=== PATIENT | female | born 1945 | race African-American/Black ===

== ENCOUNTER 2017-02-17 17:40 | Emergency (ER) | payer MEDICARE ==
[~2017-02-17] VITALS: Ht 165.1 cm; Wt 112.9 kg
[~2017-02-17 17:40] MED LIST: AMLO10TA4 PO; LISI40TA PO; NAPR500T PO
--- NOTE | 2017-02-17 17:58 | EKG ---
[facility] [address] [place] [address] Test Date: 2017-02-17 Test Time: 17:46:57 Pat Name: ANGELICA KUMAR Department: Room: Gender: F Research And Development Manager: : 1945 Requested By: KIERAN SÁNCHEZ Order Number: [id number] Reading MD: Kristina Grant Measurements Intervals [place] Rate: 71 P: 59 WV: 212 QRS: -18 QRSD: 92 T: 50 QT: 354 QTc: 389 Interpretive Statements SINUS RHYTHM LEFTWARD AXIS OTHERWISE NORMAL ECG RI6.01 Compared to ECG 03/25/2016 12:16:02 First degree AV block no longer present Electronically Signed On 02-18-2017 19:58:34 CDT by Kristina Grant
[2017-02-17 18:12] LABS: BASO # 0.1 x10^3/uL (0.0-0.2); BASO % 1 % (0-3); EOS % 1 % (0-3); HEMATOCRIT 37.9 % (36.0-47.0); HEMOGLOBIN 12.2 g/dL (12.0-15.5); LYMPH # 0.9 x10^3/uL (1.0-4.8); LYMPH % 11 % (24-48); MEAN CORPUSCULAR HEMOGLOBIN 26 pg (25-35); MEAN CORPUSCULAR HGB CONC 32 g/dL (31-37); MEAN CORPUSCULAR VOLUME 82 fL (79-100); MONO % 8 % (0-9); NEUT % 80 % (31-73); PLATELET COUNT 229 x10^3/uL (140-400); RED BLOOD COUNT 4.63 x10^6/uL (3.50-5.40); RED CELL DISTRIBUTION WIDTH 15.6 % (11.5-14.5)
[2017-02-17 18:20] VITALS: BP 131/78
[2017-02-17 18:23] LABS: CREATININE 1.4 mg/dL (0.6-1.0); POTASSIUM 4.8 mmol/L (3.5-5.1)
--- NOTE | 2017-02-17 20:54 | PHYS DOC ---
Past Medical History Past Medical History: Hypertension Additional Past Medical Histor: gout Past Surgical History: Hysterectomy Alcohol Use: None Drug Use: None Adult General Chief Complaint Chief Complaint: [facility]ST [facility] HPI 72-year-old female who presents with intermittent left upper chest wall pain that was noted earlier today that is now completely resolved. Upon my initial assessment, the patient is having no chest pain whatsoever. She denies any history of cardiac disease. She states she has history of hypertension. She denies any shortness of breath. Patient is in no acute distress upon my initial evaluation and is chest pain-free. She states she was concerned because her blood pressure was slightly elevated earlier today with her symptoms. Her blood pressure upon my initial assessment is in the 140s over 80s. Review of Systems Review of Systems Constitutional: Denies fever or chills [] Eyes: Denies change in visual acuity, redness, or eye pain [] HENT: Denies nasal congestion or sore throat [] Respiratory: Denies cough or shortness of breath [] Cardiovascular: No additional information not addressed in HPI [] GI: Denies abdominal pain, nausea, vomiting, bloody stools or diarrhea [] : Denies dysuria or hematuria [] Musculoskeletal: Denies back pain or joint pain [] Integument: Denies rash or skin lesions [] Neurologic: Denies headache, focal weakness or sensory changes [] Endocrine: Denies polyuria or polydipsia [] Allergies Allergies Allergies Coded Allergies Type Severity Reaction Last Updated Verified atorvastatin Allergy Severe 03/25/16 Yes simvastatin Allergy Severe 03/25/16 No Physical Exam Physical Exam Constitutional: Well developed, well nourished, no acute distress, non-toxic appearance. [] HENT: Normocephalic, atraumatic, bilateral external ears normal, oropharynx moist, no oral exudates, nose normal. [] Eyes: PERRLA, EOMI, conjunctiva normal, no discharge. [] Neck: Normal range of motion, no tenderness, supple, no stridor. [] Cardiovascular:Heart rate regular rhythm, no murmur [] Lungs & Thorax: Bilateral breath sounds clear to auscultation [] Abdomen: Bowel sounds normal, soft, no tenderness, no masses, no pulsatile masses. [] Skin: Warm, dry, no erythema, no rash. [] Back: No tenderness, no CVA tenderness. [] Extremities: No tenderness, no cyanosis, no clubbing, ROM intact, no edema. [] Neurologic: Alert and oriented X 3, normal motor function, normal sensory function, no focal deficits noted. [] Psychologic: Affect normal, judgement normal, mood normal. [] Current Patient Data Vital Signs Vital Signs Date Time Temp Pulse Resp B/P Pulse Ox O2 Delivery O2 Flow Rate FiO2 02/17/17 18:20 82 20 131/78 96 02/17/17 17:57 98.8 Room Air 98.8 Lab Values Laboratory Tests Test 02/17/17 18:00 02/17/17 20:00 White Blood Count 9.0x10^3/uL (4.0-11.0) Red Blood Count 4.63x10^6/uL (3.50-5.40) Hemoglobin 12.2g/dL (12.0-15.5) Hematocrit 37.9% (36.0-47.0) Mean Corpuscular Volume 82fL (79-100) Mean Corpuscular Hemoglobin 26pg (25-35) Mean Corpuscular Hemoglobin Concent 32g/dL (31-37) Red Cell Distribution Width 15.6% (11.5-14.5) H Platelet Count 229x10^3/uL (140-400) Neutrophils (%) (Auto) 80% (31-73) H Lymphocytes (%) (Auto) 11% (24-48) L Monocytes (%) (Auto) 8% (0-9) Eosinophils (%) (Auto) 1% (0-3) Basophils (%) (Auto) 1% (0-3) Neutrophils # (Auto) 7.1x10^3uL (1.8-7.7) Lymphocytes # (Auto) 0.9x10^3/uL (1.0-4.8) L Monocytes # (Auto) 0.7x10^3/uL (0.0-1.1) Eosinophils # (Auto) 0.1x10^3/uL (0.0-0.7) Basophils # (Auto) 0.1x10^3/uL (0.0-0.2) Sodium Level 139mmol/L (136-145) Potassium Level 4.8mmol/L (3.5-5.1) Chloride Level 103mmol/L (98-107) Carbon Dioxide Level 28mmol/L (21-32) Anion Gap 8 (6-14) Blood Urea Nitrogen 35mg/dL (7-20) H Creatinine 1.4mg/dL (0.6-1.0) H Estimated GFR (Cockcroft-Gault) 45.0 Glucose Level 106mg/dL (70-99) H Calcium Level 10.0mg/dL (8.5-10.1) Troponin I Quantitative < 0.017ng/mL (0.000-0.055) < 0.017ng/mL (0.000-0.055) Laboratory Tests 02/17/17 18:00 Laboratory Tests 02/17/17 18:00 EKG EKG EKG as interpreted by me shows a sinus rhythm with a rate of 71 bpm. There is a leftward axis. There are no obvious ischemic findings. Radiology/Procedures Radiology/Procedures One view of the chest as interpreted by me did not reveal an acute cardiopulmonary process. Course & Med Decision Making Course & Med Decision Making Pertinent Labs and Imaging studies reviewed. (See chart for details) 72-year-old female who presented with an episode of mild left upper chest pain that fully resolved had blood work that was unrevealing. 2 sets of cardiac enzymes were negative. Her EKG and chest x-ray were unremarkable. A counselor at length she is to follow closely with her primary care doctor in next 1-2 days and to return to the ER if her chest pain should return, I deemed her to be relatively low risk for cardiac related chest pain by the fact that she only has history of hypertension and her age. Dragon Disclaimer Dragon Disclaimer This electronic medical record was generated, in whole or in part, using a voice recognition dictation system. Departure Departure Impression: Primary Impression: Chest pain Disposition: 01 HOME, SELF-CARE Admitting Physician: Other Condition: STABLE Referrals: CARLOTTA ESTEBAN MD (PCP) Patient Instructions: Chest Pain (Nonspecific), [id number] Additional Instructions: Please follow up with your primary doctor in the next 1-2 days for your chest pain. Return to the ER if you develop any worsening of your symptoms or if your chest pain should worsen. KIERAN SÁNCHEZ DO Feb 17, 2017 20:54
--- NOTE | 2017-02-18 07:53 | RAD ---
Indication chest pain. A single view of the chest was obtained and is compared to a study 05/22/2014. Heart size is at the upper limits of normal. There is no congestive heart failure or focal infiltrate seen. Significant pleural fluid is not present and there is no pneumothorax. IMPRESSION: No acute finding apparent in the chest
== END 2017-02-17 21:06 | disposition home or self-care (01) ==
LOC: ER 17:40
DX: R07.89 Other chest pain (principal); I10 Essential (primary) hypertension; M10.9 Gout, unspecified; Z90.710 Acquired absence of both cervix and uterus; Z88.8 Allergy status to other drugs, medicaments and biological substances
CPT/HCPCS: 36415; 71010; 80048; 84484; 85027; 93005; 99285-25

== ENCOUNTER 2017-10-02 15:44 | Emergency (ER) | payer MEDICARE ==
[~2017-10-02] VITALS: Ht 160 cm; Wt 108.9 kg
[2017-10-02] MEDS ORDERED: HYDROcodone/APAP 5/325MG 1 TAB TABLET PO ONE (16:15)
[2017-10-02 16:39] LABS: BASO # 0.1 x10^3/uL (0.0-0.2); BASO % 1 % (0-3); EOS % 2 % (0-3); HEMOGLOBIN 12.4 g/dL (12.0-15.5); LYMPH % 11 % (24-48); MEAN CORPUSCULAR HEMOGLOBIN 27 pg (25-35); MEAN CORPUSCULAR HGB CONC 33 g/dL (31-37); MEAN CORPUSCULAR VOLUME 81 fL (79-100); MONO % 8 % (0-9); NEUT % 79 % (31-73); PLATELET COUNT 286 x10^3/uL (140-400); RED BLOOD COUNT 4.66 x10^6/uL (3.50-5.40); RED CELL DISTRIBUTION WIDTH 14.6 % (11.5-14.5); WHITE BLOOD COUNT 8.7 x10^3/uL (4.0-11.0)
[2017-10-02 16:51] LABS: CALCIUM 10.9 mg/dL (8.5-10.1); CREATININE 1.9 mg/dL (0.6-1.0); GFR 31.6; POTASSIUM 4.7 mmol/L (3.5-5.1)
[2017-10-02 16:57] LABS: ALBUMIN 3.7 g/dL (3.4-5.0); ALBUMIN/GLOBULIN RATIO 0.7 (1.0-1.7); TOTAL BILIRUBIN 0.4 mg/dL (0.2-1.0); TOTAL PROTEIN 8.7 g/dL (6.4-8.2)
[2017-10-02 16:59] LABS: BILIRUBIN,URINE NEGATIVE (NEG); GLUCOSE,URINE NEGATIVE (NEG); NITRITE,URINE NEGATIVE (NEG); PROTEIN,URINE NEGATIVE (NEG-TRACE)
[2017-10-02 17:15] VITALS: BP 138/78
--- NOTE | 2017-10-02 17:16 | RAD ---
EXAM: Left lower extremity venous Doppler. HISTORY: Left calf pain/swelling. COMPARISON: None. FINDINGS: Grayscale and Doppler analysis of the left lower extremity deep venous system was performed with graded compression and augmentation. The common femoral, greater saphenous, superficial femoral, popliteal and calf veins were assessed. There is no evidence of deep venous thrombosis. IMPRESSION: 1. No evidence of deep venous thrombosis.
[2017-10-02 17:20] LABS: RBC,URINE 0 /HPF (0-2); WBC,URINE OCC /HPF (0-4)
[2017-10-02 17:21] LABS: BACTERIA,URINE MODERATE /HPF (0-FEW); SQUAMOUS EPITHELIAL CELL,UR OCC /LPF; YEAST,URINE PRESENT /HPF
[2017-10-02] MEDS ORDERED: HYDR-971 PO (18:01)
--- NOTE | 2017-10-02 18:01 | PHYS DOC ---
Past Medical History Past Medical History: Hypertension Additional Past Medical Histor: GOUT Past Surgical History: Hysterectomy Alcohol Use: None Drug Use: None Adult General Chief Complaint Chief Complaint: LOWER BACK PAIN OR INJURY HPI HPI Patient is a 72 year old female who presents with bilateral foot pain & swelling. The patient states she has been diagnosed with gout in bilateral feet , was taking colchicine without relief, called her doctor & received prescription for indomethacin but reports continued pain with ambulation & swelling extending into her calves, which is greater on the left. Denies trauma. She denies fevers/chills, erythema/warmth/swelling, chest pain, shortness of breath, vomiting. She has history of previous episodes of gout responding to colchicine. No recent travel or immobilization. She also has knee osteoarthritis & follows with Dr. Jarrett in the orthopedic clinic. Additionally she reports chronic lower back pain which is present tonight. Denies any new back injuries. Denies fevers/chills, abdominal pain, saddle anesthesia, lower extremity numbness/weakness, bowel/bladder incontinence or retention, dysuria/hematuria. PCP is Dr. Esteban. Review of Systems Review of Systems Constitutional: Denies fever or chills HENT: Denies nasal congestion or sore throat Respiratory: Denies cough or shortness of breath Cardiovascular: Denies chest pain, reports edema GI: Denies abdominal pain, nausea, vomiting Musculoskeletal: Reports back pain & foot pain Integument: Denies rash or skin lesions Neurologic: Denies headache, focal weakness or sensory changes All other systems were reviewed and found to be within normal limits, except as documented in this note. Current Medications Current Medications Current Medications Medications (Trade) Dose Ordered Sig/[facility] Start Time Stop Time Status Last Admin Dose Admin Acetaminophen/ Hydrocodone Bitart (Lortab 5/325) 1 tab 1X ONCE 10/02/17 16:15 10/02/17 16:16 DC 10/02/17 16:18 1 TAB Allergies Allergies Allergies Coded Allergies Type Severity Reaction Last Updated Verified atorvastatin Allergy Severe 03/25/16 Yes simvastatin Allergy Severe 03/25/16 No Physical Exam Physical Exam Constitutional: obese, no acute distress, non-toxic appearance. HENT: Normocephalic, atraumatic, bilateral external ears normal, oropharynx moist, nose normal. Eyes: conjunctiva normal, no discharge. Neck: supple, no stridor. Cardiovascular: RRR, no murmurs, no edema. Lungs & Thorax: LCTAB, no wheezing, no respiratory distress. Abdomen: soft, nontender, nondistended. no masses or pulsatile masses. Skin: Warm, dry, no erythema, no rash. Back: No CVA tenderness, mild diffuse pain across lower back without focal spinal tenderness or step offs Extremities: bilateral 2+ nonpitting edema to lower extremities, slight calf tenderness on the left, no obvious joint erythema/warmth/swelling to her bilateral feet, dp/pt 2+ bilaterally, symmetric strength & sensation to lower extremities. Neurologic: Alert and oriented X 3, no focal deficits noted. Psychologic: Affect normal, judgement normal, mood normal. Current Patient Data Vital Signs Vital Signs Date Time Temp Pulse Resp B/P (MAP) Pulse Ox O2 Delivery O2 Flow Rate FiO2 10/02/17 17:15 72 16 138/78 (98) 100 Room Air 10/02/17 15:52 98.0 98.0 Lab Values Laboratory Tests Test 10/02/17 16:25 10/02/17 16:45 White Blood Count 8.7 x10^3/uL (4.0-11.0) Red Blood Count 4.66 x10^6/uL (3.50-5.40) Hemoglobin 12.4 g/dL (12.0-15.5) Hematocrit 38.0 % (36.0-47.0) Mean Corpuscular Volume 81 fL (79-100) Mean Corpuscular Hemoglobin 27 pg (25-35) Mean Corpuscular Hemoglobin Concent 33 g/dL (31-37) Red Cell Distribution Width 14.6 % (11.5-14.5) H Platelet Count 286 x10^3/uL (140-400) Neutrophils (%) (Auto) 79 % (31-73) H Lymphocytes (%) (Auto) 11 % (24-48) L Monocytes (%) (Auto) 8 % (0-9) Eosinophils (%) (Auto) 2 % (0-3) Basophils (%) (Auto) 1 % (0-3) Neutrophils # (Auto) 6.8 x10^3uL (1.8-7.7) Lymphocytes # (Auto) 1.0 x10^3/uL (1.0-4.8) Monocytes # (Auto) 0.7 x10^3/uL (0.0-1.1) Eosinophils # (Auto) 0.1 x10^3/uL (0.0-0.7) Basophils # (Auto) 0.1 x10^3/uL (0.0-0.2) Sodium Level 140 mmol/L (136-145) Potassium Level 4.7 mmol/L (3.5-5.1) Chloride Level 102 mmol/L (98-107) Carbon Dioxide Level 27 mmol/L (21-32) Anion Gap 11 (6-14) Blood Urea Nitrogen 45 mg/dL (7-20) H Creatinine 1.9 mg/dL (0.6-1.0) H Estimated GFR (Cockcroft-Gault) 31.6 BUN/Creatinine Ratio 24 (6-20) H Glucose Level 99 mg/dL (70-99) Calcium Level 10.9 mg/dL (8.5-10.1) H Total Bilirubin 0.4 mg/dL (0.2-1.0) Aspartate Amino Transferase (AST) 14 U/L (15-37) L Alanine Aminotransferase (ALT) 15 U/L (14-59) Alkaline Phosphatase 116 U/L (46-116) KA-Oov-S-Type Natriuretic Peptide 368 pg/mL (0-124) H Total Protein 8.7 g/dL (6.4-8.2) H Albumin 3.7 g/dL (3.4-5.0) Albumin/Globulin Ratio 0.7 (1.0-1.7) L Urine Color Yellow Urine Clarity Clear Urine pH 6.0 Urine Specific [place] 1.015 Urine Protein Negative mg/dL (NEG-TRACE) Urine Glucose (UA) Negative mg/dL (NEG) Urine Ketones (Stick) Negative mg/dL (NEG) Urine Blood Negative (NEG) Urine Nitrite Negative (NEG) Urine Bilirubin Negative (NEG) Urine Urobilinogen Dipstick 1.0 mg/dL (0.2 mg/dL) Urine Leukocyte Esterase Negative (NEG) Urine RBC 0 /HPF (0-2) Urine WBC Occ /HPF (0-4) Urine Squamous Epithelial Cells Occ /LPF Urine Bacteria Moderate /HPF (0-FEW) Urine Hyaline Casts Occasional /HPF Urine Mucus Mod /LPF Urine Yeast Present /HPF Laboratory Tests 10/02/17 16:25 Laboratory Tests 10/02/17 16:25 EKG EKG [] Radiology/Procedures Radiology/Procedures PROCEDURE: VENOUS LOWER EXTREMITY LEFT EXAM: Left lower extremity venous Doppler. HISTORY: Left calf pain/swelling. COMPARISON: None. FINDINGS: Grayscale and Doppler analysis of the left lower extremity deep venous system was performed with graded compression and augmentation. The common femoral, greater saphenous, superficial femoral, popliteal and calf veins were assessed. There is no evidence of deep venous thrombosis. IMPRESSION: 1. No evidence of deep venous thrombosis. DICTATED and SIGNED BY: NERIS BERRY MD DATE: 10/02/171710 [] Course & Med Decision Making Course & Med Decision Making Pertinent Labs and Imaging studies reviewed. (See chart for details) The patient presents with back pain & foot/calf pain. At this time I do not see any evidence of acute gout, so the medication may have helped more than she realized. This appears to be mostly chronic back pain with chronic peripheral edema/venous insufficiency, but obtained venous ultrasound of the painful calf as well as labs. BNP slightly elevated, creatinine elevated, review of previous labs demonstrates that this is at her baseline. Recommend supportive care - rest, elevation, compression stockings, follow up with PCP next week if not improving. Come back for high fever, severe chest pain or shortness of breath, focal neuro deficit, symptoms of cauda equina syndrome, any otherwise worsening condition. Discharged home in stable condition. [] Dragon Disclaimer Dragon Disclaimer This electronic medical record was generated, in whole or in part, using a voice recognition dictation system. Departure Departure Impression: Primary Impression: Lower extremity edema Disposition: 01 HOME, SELF-CARE Condition: STABLE Referrals: CARLOTTA ESTEBAN MD (PCP) Patient Instructions: Edema, [id number] Additional Instructions: You were seen in the emergency department today for leg swelling. Your tests here did not show serious cause of symptoms. Please elevate your legs, wear compression stockings, take all medications as prescribed by your doctor. Use norco as needed for severe pain. No drinking alcohol or driving while taking this medication. Follow up with Dr. Esteban in 2-3 days if not improving. Come back for severe shortness of breath or chest pain, or any otherwise worsening condition. Scripts Hydrocodone/Apap 5-325 (NORCO 5-325 TABLET) 1 Each Tablet 1 TAB PO PRN Q6HRS Y for PAIN, #10 TAB 0 Refills Prov: LATRICE HOOKER MD 10/02/17 LATRICE HOOKER MD Oct 02, 2017 18:01
--- NOTE | 2017-10-05 16:30 | VNOTE ---
CALL BACK NOTE CALL BACK Microbiology 10/02/17 Urine Culture - Final, Complete 10/02/17 Urine Culture Result 1 (BALTA) - Final, Complete 10/02/17 Antimicrobic Susceptibility - Final, Complete Voicemail left at patient's contact information provided to return phone call to discuss culture results. Augmentin 875 mg tablets, take 1 tablet twice a day 10 days. Dispense 20 tablets. no refills. ELANA CABRERA Oct 05, 2017 16:30
--- NOTE | 2017-10-05 16:44 | VNOTE ---
CALL BACK NOTE CALL BACK Microbiology 10/02/17 Urine Culture - Final, Complete 10/02/17 Urine Culture Result 1 (BALTA) - Final, Complete 10/02/17 Antimicrobic Susceptibility - Final, Complete Patient called back and [facility] [phone] ELANA CABRERA Oct 05, 2017 16:44
== END 2017-10-02 18:18 | disposition home or self-care (01) ==
LOC: ER 15:44
DX: R60.0 Localized edema (principal); G89.29 Other chronic pain; M54.5 Low back pain; I10 Essential (primary) hypertension; E66.9 Obesity, unspecified; M10.9 Gout, unspecified; Z68.41 Body mass index [BMI] 40.0-44.9, adult; Z79.899 Other long term (current) drug therapy; Z88.8 Allergy status to other drugs, medicaments and biological substances
CPT/HCPCS: 36415; 80053; 81001; 83880; 85025; 87086; 87186; 93971; 99285-25

== ENCOUNTER → 2018-04-23 | Outpatient (CLI) | payer MEDICARE ==
[2018-04-23] MEDS: IOHEXOL 300 MG/ML 50 ML VIAL. INT ART (11:23)
[2018-04-23] MEDS: BUPIVACAINE MPF 0.25% 10 ML VIAL. INT ART (11:23)
[2018-04-23] MEDS: methylPREDNISolone ACETATE 40 MG/ML VIAL. INT ART (11:23)
[2018-04-23] MEDS: LIDOCAINE 1% Multi-Dose 20 ML VIAL. ID (11:23)
== END | disposition home or self-care (01) ==
LOC: KCIC 10:22
DX: M25.551 Pain in right hip (principal); G89.29 Other chronic pain; I10 Essential (primary) hypertension; E78.00 Pure hypercholesterolemia, unspecified; M10.9 Gout, unspecified; Z88.8 Allergy status to other drugs, medicaments and biological substances
CPT/HCPCS: 20610; 77002; J1030; J3490; Q9967

== ENCOUNTER → 2018-11-12 | Outpatient (CLI) | payer MEDICARE ==
[~2018-11-12] MED LIST changes: +HYDR-3164 PO; +LISI-130 PO; -LISI40TA PO; +NAPR-683 PO; -NAPR500T PO
--- NOTE | 2018-11-12 14:58 | KCIC ---
EXAM: Bilateral screening mammogram. HISTORY: 73-year-old female presents for screening mammography. TECHNIQUE: Full-field digital craniocaudal and mediolateral oblique views of both breasts are obtained for evaluation. Computer aided detection with [employer] software version 9.3 was applied. COMPARISON: 03/27/2014 BREAST PARENCHYMAL DENSITY: Level C - Heterogeneously dense. FINDINGS: There is no new suspicious mass, microcalcification or region of architectural distortion. IMPRESSION: BI-RADS Category 2: Benign finding(s). RECOMMENDATION: Annual mammography is recommended. If your mammogram demonstrates that you have dense breast tissue, which could hide abnormalities, and if you have other risk factors for breast cancer that have been identified, you might benefit from supplemental screening tests that may be suggested by your ordering physician. Dense breast tissue, in and of itself, is a relatively common condition. This information is not provided to cause undue concern, but rather to raise your awareness and to promote discussion with your physician regarding the presence of other risk factors, in addition to dense breast tissue. A report of your mammography results will be sent to you and your physician. You should contact your physician if you have any questions or concerns regarding this report. Mammography is a sensitive method for finding small breast cancers, but it does not detect them all and is not a substitute for careful clinical examination. A negative mammogram does not negate a clinically suspicious finding and should not result in delay in biopsying a clinically suspicious abnormality. PQRS compliance statement - Patient information was entered into a reminder system with a target due date for the next mammogram. "Our facility is accredited by the [employer] Mammography Program." Electronically signed by: Tahmina Panda MD (11/12/2018 2:54 PM) [facility]
== END | disposition home or self-care (01) ==
LOC: KCIC MAMMO 12:43
PROVIDERS: ATTEND Physician Assistant Surgical
DX: Z12.31 Encounter for screening mammogram for malignant neoplasm of breast (principal)
CPT/HCPCS: 77067

== ENCOUNTER → 2020-06-04 | Outpatient (CLI) | payer MEDICARE ==
[~2020-06-04] MED LIST changes: +REGADENOSON 0.4 MG/5 ML DISP.SYRIN. IV ONE
--- NOTE | 2020-06-04 12:14 | RAD ---
MR#: [id number] Date of Study: 06/04/2020 Ordering Physician: AMANDA DORAN, Referring Physician: RICARDA ONEIL Tech: RT Ayla Abarca) (N) APPROVED REPORT Test Type: Pharmacological Stress Nurse/Tech: Luly ANGEL Test Indications: Dyspnea Cardiac History: HTN, See EMR Medications: See EMR Medical History: See EMR Resting ECG: SR Resting Heart Rate: 76 bpm Resting Blood Pressure: 138/79mmHg Pretest Chest Pain: No chest pain Nurse/Tech Notes Lungs CTA, Heart tones regular Consent: The procedure was explained to the patient in lay terms. Informed consent was witnessed. Huang eout was entered into [employer]. History and Stress Test performed by RT Ayla Stark) (N) Pharm. Details Pharmacologic stress testing was performed using 0.4mg per 5ml of regadenoson given intravenously ove r 7-10 seconds. Stress Symptoms Dyspnea POST EXERCISE Reason for Termination: Infusion complete Max HR: 119 bpm Max Blood Pressure: 153/80mmHg Blood Pressure response to exercise: Normal blood pressure response during stress. Heart Rate response to exercise: WNL Chest Pain: No. Arrhythmia: No. ST Change: No. INTERPRETATION Stress EKG Conclusion: Baseline EKG showed sinus rhythm. No ischemic changes at peak stress. No arr hythmias. Imaging Protocol IMAGE PROTOCOL: Stress Tc-99m/rest Tc-99m 2 days Rest: Stress: Viability: Radiopharm.Tc99m Sestamibi Dose32.5mCi Duration 13.5min. Img Date 06/04/2020 Inj-Img [id number]. Stress Admin Site: IV - Right AntecubitalAdministrator: RT Ayla Stark)(N) STRESS DATA End Diast. Vol.55.0mlAv. Heart Rate95.0bpm LVEDV index BSA26.0mlCardiac Output2.0L/min End Syst. Vol.9.0mlCO Index BSA4.3L/min LVESV index BSA4.0mlMyocardial Nlbp400.0g Eject. Kvdbjbnz58.0% Stress Scores Regional WT2.00Summed WT16.00 Regional WM0.00Summed WM0.00 LV Perfusion Stress scintigraphic images did not show any significant perfusion defects. Wall Motion Normal left ventricular systolic function with ejection fraction calculated at 76%. LV Perf. Quant 17 Seg. SSS0.00 Stress Defect Extent (% LAD)0.00Rest Defect Extent (% LAD)Rev. Defect Extent (% LAD) Stress Defect Extent (% LCX) 0.00Rest Defect Extent (% LCX)Rev. Defect Extent (% LCX) Stress Defect Extent (% RCA)0.00Rest Defect Extent (% RCA)Rev. Defect Extent (% RCA) Stress Defect Extent (% ZARA)0.00Rest Defect Extent (% ZARA)Rev. Defect Extent (% ZARA) Conclusion 1. Regadenoson cardioisotope stress test did not show any evidence of ischemia or infarct. 2. Normal left ventricular systolic function with ejection fraction calculated at 76%. 3. Low risk for cardiac events. Signed by : Lee Angeles, Electronically Approved : 06/04/2020 12:14:01
--- NOTE | 2020-06-04 12:16 | CARD ---
MR#: [id number] Date of Study: 06/04/2020 Ordering Physician: AMANDA DORAN, Referring Physician: AMANDA DORAN, Tech: Marylin Starr [facility] APPROVED REPORT EXAM: Two-dimensional and M-mode echocardiogram with Doppler and color Doppler. Other Information Quality : Good INDICATION Dyspnea 2D DIMENSIONS RVDd3.0 (2.9-3.5cm)Left Atrium(2D)3.2 (1.6-4.0cm) IVSd1.3 (0.7-1.1cm)Aortic Root(2D)2.8 (2.0-3.7cm) LVDd4.0 (3.9-5.9cm)LVOT Diameter2.0 (1.8-2.4cm) PWd1.3 (0.7-1.1cm)LVDs1.8 (2.5-4.0cm) FS (%) 30.0 %SV60.1 ml LVEF(%)60.0 (>50%) Aortic Valve AoV Peak Conrad.206.8cm/sAoV VTI39.3cm AO Peak GR.17.1mmHgLVOT Peak Conrad.209.6cm/s AO Mean GR.11mmHgAVA (VMAX)3.06cm2 BISI (VTI)3.10cm2 Mitral Valve MV E Ewsgewyd02.5cm/sMV DECEL ANVN489me MV A Uwxdqqgb419.8cm/sE/A Ratio0.6 Tricuspid Valve TR P. Krwcqbvr906ww/sRAP ROPGQIES8vaUm TR Peak Gr.55dcLiAKAA37iuZq Pulmonary Vein S1 Ykudhhbw31.7cm/sD2 Wfshlsuz71.3cm/s LEFT VENTRICLE The left ventricle is normal size. There is mild concentric left ventricular hypertrophy. The left ve ntricular systolic function is normal. The Ejection Fraction is 55-60%. There is normal LV segmental wall motion. Transmitral Doppler flow pattern is Grade I-abnormal relaxation pattern. RIGHT VENTRICLE The right ventricle is normal size. The right ventricular systolic function is normal. ATRIA The left atrium size is normal. The right atrium size is normal. The interatrial septum is intact wit h no evidence for an atrial septal defect or patent foramen ovale as noted on 2-D or Doppler imaging. AORTIC VALVE The aortic valve is calcified but opens well. Doppler and Color Flow revealed no significant aortic r egurgitation. There is no significant aortic valvular stenosis. MITRAL VALVE The mitral valve is calcified but opens well. There is no evidence of mitral valve prolapse. There is no mitral valve stenosis. Doppler and Color-flow revealed mild mitral regurgitation. TRICUSPID VALVE The tricuspid valve is normal in structure and function. Doppler and Color Flow revealed trace tricus pid regurgitation. The PA pressure was estimated at 29 mmHg. There is no tricuspid valve stenosis. PULMONIC VALVE The pulmonary valve is normal in structure and function. Doppler and Color Flow revealed mild pulmoni c valvular regurgitation. There is no pulmonic valvular stenosis. GREAT VESSELS The aortic root is normal in size. The ascending aorta is normal in size. The IVC is normal in size a nd collapses >50% with inspiration. PERICARDIAL EFFUSION There is no evidence of significant pericardial effusion. Critical Notification Critical Value: No <Conclusion> The left ventricular systolic function is normal. The Ejection Fraction is 55-60%. There is normal LV segmental wall motion. Transmitral Doppler flow pattern is Grade I-abnormal relaxation pattern. Mild mitral regurgitation. Trace tricuspid regurgitation. The PA pressure was estimated at 29 mmHg. There is no evidence of significant pericardial effusion. Signed by : Lee Angeles, Electronically Approved : 06/04/2020 12:16:15
== END | disposition home or self-care (01) ==
LOC: NM 07:33
PROVIDERS: ATTEND Internal Medicine Cardiovascular Disease
DX: I08.8 Other rheumatic multiple valve diseases (principal); I10 Essential (primary) hypertension
CPT/HCPCS: 78452; 93017; 93306; A9500; J2785

== ENCOUNTER 2020-07-03 16:20 | Emergency (ER) | payer OTHER, MEDICARE ==
[~2020-07-03] VITALS: Ht 165.1 cm; Wt 113.2 kg
[~2020-07-03 16:20] MED LIST changes: -REGADENOSON 0.4 MG/5 ML DISP.SYRIN. IV ONE
[2020-07-03] MEDS ORDERED: ORPHENADRINE CITRATE 60 MG/2 ML VIAL. IM ONE (17:30)
[2020-07-03] MEDS ORDERED: HYDROcodone/APAP 5/325MG 1 TAB TABLET PO ONE (17:30)
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
[2020-07-03] MEDS ORDERED: HYDR-3164 PO (18:46)
[2020-07-03] MEDS ORDERED: ORPH100T PO (18:46)
== END 2020-07-03 19:18 | disposition home or self-care (01) ==
LOC: ER 16:20
DX: S50.12XA Contusion of left forearm, initial encounter (principal); M25.562 Pain in left knee; M25.532 Pain in left wrist; M25.552 Pain in left hip; M79.605 Pain in left leg; I10 Essential (primary) hypertension; M10.9 Gout, unspecified; Z90.710 Acquired absence of both cervix and uterus; Z88.8 Allergy status to other drugs, medicaments and biological substances; V49.49XA Driver injured in collision with other motor vehicles in traffic accident, initial encounter; Y92.488 Other paved roadways as the place of occurrence of the external cause; Y93.89 Activity, other specified; Y99.8 Other external cause status
CPT/HCPCS: 29125; 29505; 73090; 73110; 73502; 73552; 73562; 73590; 96372; 99284; J2360